=== PATIENT | male | born 1985 | race Two or more races ===

== ENCOUNTER 2022-08-03 18:55 | Emergency (ER) | payer MEDICAID ==
[~2022-08-03] VITALS: Ht 182.9 cm; Wt 97.7 kg
[2022-08-03 19:45] VITALS: BP 127/83
[2022-08-04] MEDS ORDERED: KETOROLAC TROMETH 60MG/2ML VIAL IM ONE (04:00)
[2022-08-04] MEDS ORDERED: AMOX500T86 PO (04:26)
== END 2022-08-04 04:33 | disposition home or self-care (01) ==
LOC: ER 18:55
DX: H66.92 Otitis media, unspecified, left ear (principal); Z79.2 Long term (current) use of antibiotics
CPT/HCPCS: 96372; 99283; J1885